=== PATIENT | male | born 1970 | race Caucasian/White ===

== ENCOUNTER 2019-07-12 10:28 | Emergency (ER) | payer OTHER ==
[~2019-07-12] VITALS: Ht 180.3 cm; Wt 135.6 kg
[2019-07-12] MEDS ORDERED: NORVASC5 MG PO (10:44)
[2019-07-12] MEDS ORDERED: PROTONIX 20 MG20 M1 PO (10:45)
[2019-07-12] MEDS ORDERED: XANAX 0.5 MG0.5 MG PO (10:45)
[2019-07-12] MEDS ORDERED: LOSARTAN POTASS50 MG PO (10:45)
[2019-07-12 11:46] VITALS: BP 148/93
== END 2019-07-12 11:45 | disposition home or self-care (01) ==
LOC: M.ERS 10:28
DX: Z53.21 Procedure and treatment not carried out due to patient leaving prior to being seen by health care provider (principal)

== ENCOUNTER 2021-01-23 08:06 | Observation (INO) | payer OTHER ==
[~2021-01-23] VITALS: Ht 180.3 cm; Wt 129.7 kg
[~2021-01-23 08:06] MED LIST: LOSARTAN POTASS50 MG PO; NORVASC5 MG PO; PROTONIX 20 MG20 M1 PO; XANAX 0.5 MG0.5 MG PO
[2021-01-23 08:18] VITALS: BP 152/83
[2021-01-23] MEDS ORDERED: HYDROCHLOROTH12.5 M1 PO (08:20)
[2021-01-23 08:37] LABS: ABSOLUTE EOSINOPHILS 0.3 thou/uL (0.0-0.7); ABSOLUTE LYMPHOCYTES 2.4 thou/uL (0.8-5.3); ABSOLUTE MONOCYTES 0.8 thou/uL (0.0-1.2); ABSOLUTE NEUTROPHILS 5.3 thou/uL (1.6-8.1); BASOPHILS 0.3 %; EOSINOPHILS 3.6 %; HEMATOCRIT 48.7 % (42.0-52.0); LYMPHOCYTES 27.1 %; MCH 31.9 pg (26.0-34.0); MCHC 34.9 g/dL (28.0-37.0); MCV 91.4 fL (80.0-100.0); MONOCYTES 8.6 %; MPV 9.2 fl. (7.2-11.1); NUCLEATED RBCS 0 /100WBC; PLATELET COUNT* 248 thou/uL (150-400); POLYS 60.4 %; RBC 5.33 mil/uL (4.50-6.00); RDW-CV 12.5 % (10.5-14.5); WBC 8.8 thou/uL (4.0-11.0)
[2021-01-23 08:43] LABS: CALCIUM 9.3 mg/dL (8.5-10.1); CREATININE 1.2 mg/dL (0.6-1.3); POTASSIUM 3.4 mmol/L (3.5-5.1)
[2021-01-23 08:48] LABS: APTT 23.7 Seconds (25.0-31.3); PROTIME 10.5 Seconds (9.20-11.50)
[2021-01-23 08:53] LABS: ALBUMIN 3.7 g/dL (3.4-5.0); MAGNESIUM 1.7 mg/dL (1.8-2.4); TOTAL PROTEIN 7.9 g/dL (6.4-8.2)
[2021-01-23 10:45] VITALS: BP 118/73
--- NOTE | 2021-01-23 14:51 | EKG ---
[place] [address] ELECTROCARDIOGRAM REPORT Name: KAREN DUMONT [address] [id number] Admission: 01/23/21 Attend Phys: Connor Holcomb Discharge: Date of : 66 Date of Service: 01/23/2110 Report #: [id number] THIS REPORT FOR: //name// [facility] ED Test Date: 2021-01-23 Test Time: 08:10:44 Pat Name: KAREN DUMONT Department: Room: [facility] Gender: M Financial Services Intern: KAE : 1970 Requested By: Arron Ledezma Order Number: [id number] MD: Kane Tilley Measurements Intervals [place] Rate: 118 P: 48 TN: 153 QRS: 23 QRSD: 89 T: -33 QT: 313 QTc: 439 Interpretive Statements Sinus tachycardia Probable left atrial enlargement Borderline repolarization abnormality Baseline wander in lead(s) III,aVL,aVF No previous ECG available for comparison Electronically Signed On 01-23-2021 14:51:16 CDT by Kane Tilley [email or web address] <ELECTRONICALLY SIGNED> By: Kane Tilley MD, [facility] 01/23/21 1451 0810 0810 aKne Tilley MD, [facility] /EPI
[2021-01-23 16:07] VITALS: BP 139/82
[2021-01-23 17:49] LABS: CALCIUM 9.5 mg/dL (8.5-10.1); CREATININE 1.2 mg/dL (0.6-1.3); POTASSIUM 5.1 mmol/L (3.5-5.1)
[2021-01-23 17:52] LABS: MAGNESIUM 1.6 mg/dL (1.8-2.4); PHOSPHORUS* 4.5 mg/dL (2.5-4.9)
--- NOTE | 2021-01-23 18:50 | NUR ---
ASSUMED CARE 1100. PT UP FROM ED. ASSESSMENTS COMPLETED, SEE CHART FOR DETIALS. VS CHARTED, NO S/S DISTRESS. EDUCATION PROVIDED REGARDING PLAN OF CARE, PT STATES UNDERSTANDING AND AGREEMENT. WILL CONTINUE TO MONITOR.
[2021-01-23 19:45] VITALS: BP 155/85
[2021-01-23 20:09] LABS: AMP/METHAMP Negative (Negative); BARBITURATES Negative (Negative); BENZODIAZEPINES Negative (Negative); COCAINE Negative (Negative); METHADONE Negative (Negative); OPIATES POSITIVE (Negative); PCP Negative (Negative); THC Negative (Negative)
[2021-01-24 00:08] VITALS: BP 138/73
[2021-01-24 04:40] LABS: MCH 32.4 pg (26.0-34.0); MCHC 34.6 g/dL (28.0-37.0); MCV 93.7 fL (80.0-100.0); MPV 8.9 fl. (7.2-11.1); RBC 4.48 mil/uL (4.50-6.00); RDW-CV 12.3 % (10.5-14.5); WBC 5.9 thou/uL (4.0-11.0)
[2021-01-24 04:46] VITALS: BP 116/71
[2021-01-24 04:51] LABS: HEMOGLOBIN 14.5 gm/dL (14.0-18.0)
[2021-01-24 04:54] LABS: ALKALINE PHOSPHATASE 87 U/L (46-116); ANION GAP 8 mmol/L (7-16); BUN 12 mg/dL (7-18); CALCIUM 9.7 mg/dL (8.5-10.1); CHLORIDE 100 mmol/L (98-107); CHOLESTEROL 198 mg/dL (<200); CO2 31 mmol/L (21-32); CREATININE 0.9 mg/dL (0.6-1.3); GLUCOSE 251 mg/dL (70-99); HDL CHOLESTEROL 47 mg/dL (>40); LDL CHOLESTEROL 99 mg/dL (<100); MAGNESIUM 1.7 mg/dL (1.8-2.4); PHOSPHORUS* 3.7 mg/dL (2.5-4.9); SGOT 16 U/L (15-37); SGPT 38 U/L (30-65); SODIUM 139 mmol/L (136-145); TC:HDL 4.2 Ratio (Not establshd); TOTAL BILIRUBIN 0.9 mg/dL (<0.1-1.0); TOTAL PROTEIN 6.6 g/dL (6.4-8.2); TRIGLYCERIDE 264 mg/dL (<150); VLDL 53 mg/dL (<40)
[2021-01-24 04:56] LABS: POTASSIUM 3.7 mmol/L (3.5-5.1)
[2021-01-24 05:05] LABS: SERUM ASSESSMENT CLEAR
--- NOTE | 2021-01-24 05:54 | NUR ---
ASSUMED PT CARE AT APPROX. 1915. PT A/OX4. VSS. PT IS SR ON TELEMONITOR. PT C/O CHRONIC UPPER BACK PAIN. MEDICATIONS ADMINISTERED PRESCRIBED. CIWA SCORE WAS A 1. PT DENIED FEELING SYMPTOMS FROM ALCOHOL WITHDRAW. HOURLY ROUNDS COMPLETE CHARTED. FALL PRECAUTIONS IN PLACE FOR SAFETY. CALL LIGHT WITHIN REACH. WILL CONT. TO MONITOR.
[2021-01-24 08:00] VITALS: BP 137/87
[2021-01-24 11:56] VITALS: BP 147/82
[2021-01-24 12:35] VITALS: BP 147/82
--- NOTE | 2021-01-24 13:45 | NUR ---
RECEIVED REPORT. ASSUMED CARE OF PT AROUND 0730. AM ASSESSMENT AND VITALS COMPLETED CHARTED. MEDS PER EMAR. DOCTORS ROUNDED. DISCHARGE ORDERS RECEIVED. DISCHARGE COMPLETED DOCUMENTED. PT AWARE TO FOLLOW UP WITH PCP. PT AWARE TO ASK ABOUT PRE-DIABETES MANAGMENT. ALL BELONGINGS GATHERED AND SENT OUT WITH PT. IV AND NAIL FEEDER REMOVED. PT NO LONGER HAVING CHEST PAIN AT TIME OF DC. TOOK ONE DOESE OF MAGNESIUM BEFORE DC - DID NOT WANT A SECOND DOSE. PT LEFT UNIT WALKING WITH NURSING STAFF. PT LEFT HOSPITAL IN CAR WITH SPOUSE.
--- NOTE | 2021-01-24 13:53 | CON ---
[address] [address] CONSULTATION Name: KAREN DUMONT Room: [address] Anne Leon#: [id number] Admission: 01/23/21 Attend Phys: Nirmala Weeks Discharge: 01/24/21 Date of : 66 Report #: [id number] THIS REPORT FOR: cc: Jimenez Barbosa MD, Matthew D MD Liston, Michael J. MD [facility] ~ CARDIOLOGY CONSULTATION INDICATION: Chest pain. HISTORY OF PRESENT ILLNESS: The patient is a very pleasant 50-year-old gentleman with no prior cardiac history. He presented to the Emergency Room with pain radiating from the back to the mid sternal area that was persistent throughout the day. EKG shows sinus rhythm without acute ST or T-wave abnormality. Troponins are negative x 3 sets. He reports a history of hypertension. He denies any history of diabetes, hyperlipidemia, or tobacco use. He has a history of coronary artery disease in his father in his 80s. There was no history of premature atherosclerotic coronary artery disease. He has had lots of trouble with cervical, thoracic and lumbar spinal disease with neurologic pain related to this. The pain that he describes yesterday was somewhat different than his typical neurologic pain. The patient was given nitroglycerin in the Emergency Room without relief of pain. He states the fentanyl did then relieve his pain. He has been pain free since. PAST MEDICAL HISTORY: 1. Hypertension. 2. Previous back surgery. 3. Anxiety. 4. Previous hernia repair. HOME MEDICATIONS: Amlodipine 5 mg daily, losartan 50 mg daily, alprazolam 0.5 mg p.r.n., hydrochlorothiazide 12.5 mg daily. ALLERGIES: None documented. SOCIAL HISTORY: The patient drinks alcohol daily. He does not smoke. FAMILY HISTORY: The patient's brother has lung cancer and atrial fibrillation. The patient's father had heart attack in his 80s. Apparently, he has an ischemic cardiomyopathy. REVIEW OF SYSTEMS: A 14-point review of systems is positive for joint pain, paresthesias, neck pain. Otherwise, 14-point review [place] [address] CONSULTATION Name: KAREN DUMONT Room: [address]#: [id number] Admission: 01/23/21 Attend Phys: Nirmala Weeks Discharge: 01/24/21 Date of : 66 Report #: [id number] PHYSICAL EXAMINATION: VITAL SIGNS: Stable. Blood pressure 147/82 and the pulse 79 and regular. GENERAL: This is a moderately obese, pleasant white male, in no distress. Mood and affect appropriate. HEENT: Extraocular muscles intact. Mucous membranes are moist. NECK: Shows no jugular venous distention. There are no carotid bruits. CHEST: Reveals clear lung tay without wheezes or rales. CARDIOVASCULAR: Reveals a regular rhythm with normal S1 and S2. I do not appreciate gallop or murmur. ABDOMEN: Reveals a protuberant abdomen, soft, and nontender. Bowel sounds present. EXTREMITIES: Shows no edema. SKIN: Dry. Peripheral pulses are 2+ and easily palpable. DIAGNOSTIC STUDIES: A 12-lead EKG shows sinus rhythm without acute ST abnormality. LABORATORY DATA: Reviewed. Troponins are negative x 3 sets. IMPRESSION AND RECOMMENDATIONS: 1. Chest pain. Atypical for cardiac. He has ruled out for myocardial infarction. At this point in time, I believe he is safe for discharge. I did recommend outpatient cardiac calcium scoring. 2. Hypertension. Continue home medications as outlined above. At this point in time, the patient appears stable from a cardiac standpoint. Okay to discharge. <ELECTRONICALLY SIGNED> By: Blair Ocampo MD, FACC 01/24/21 1353 1210 1230Blair cOampo MD, FACC /nt
--- NOTE | 2021-01-24 14:59 | NUR ---
CM SPOKE TO THE PT TO COMPLETE CM ASSESSMENT. PT A&O, INDEPENDENT WITH ADL'S, ACTIVE AND WORKS OUTSIDE THE HOME. PT USES 0 DME. RN IN-CHARGE OF PT INFORMS OF PT'S REQUEST FOR ETOH RESOURCES. CM PROVIDED PT WITH COMMUNTY RESOUCES FOR OUTPATIENT ETOH TREATMENT. CM WILL REMAIN AVAILABLE TO ASSIST AND FOLLOW NEEDED.
== END 2021-01-24 13:44 | disposition home or self-care (01) ==
LOC: M.ERS 08:06 → M.2W 09:24 → M.TBA-ER 09:24 → M.2W 11:01
PROVIDERS: Emergency Medicine Emergency Medical Services; ADMIT Internal Medicine; ATTEND Internal Medicine
DX: R07.89 Other chest pain (principal); Z20.822 Contact with and (suspected) exposure to COVID-19; E11.9 Type 2 diabetes mellitus without complications; E83.42 Hypomagnesemia; M25.512 Pain in left shoulder; M54.9 Dorsalgia, unspecified; G89.29 Other chronic pain; I10 Essential (primary) hypertension; E66.9 Obesity, unspecified; F41.9 Anxiety disorder, unspecified; F10.10 Alcohol abuse, uncomplicated; Z79.899 Other long term (current) drug therapy